=== PATIENT | male | born 1995 | race Caucasian/White ===

== ENCOUNTER 2021-11-06 19:46 | Inpatient (IN) | payer MEDICAID, SELFPAY ==
[2021-11-06 19:47] VITALS: BP 129/100; PULSE 102; RESP 17; TEMP 36.2; O2SAT 98; BMI 24.3
--- NOTE | 2021-11-06 20:06 | CM.ED ---
Social Work Telephone call from treatment navigator, Lula. Lula reports to be aware of patient coming to hospital for RAMP. Lula states no need to call Lula on patient admission to [facility]. Parris OLIVEIRA, MORELIAS
--- NOTE | 2021-11-06 20:42 | EDS_ITS ---
HPI History of Present Illness Chief Complaint: Substance Abuse Informant: patient and family Narrative Narrative: Patient seeking detox. He smokes or snorts all of the above on a daily basis: Marijuana, fentanyl, crack cocaine, methamphetamine, Percocet. Last use of most of these was this morning, he did not use fentanyl today but he did use Percocet. He vomited just prior to arrival here but he denies any other withdrawal symptoms right now. 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 He denies any abscesses or acute pain right now in any of these areas. [facility] Medical History Kidney failure MRSA (methicillin resistant Staphylococcus aureus) Neuropathy Overdose Staphylococcal infection of skin Allergy/AdvReac Type Severity Reaction Status Date / Time No Known Allergies Allergy Verified 11/06/21 19:51 Family History (Updated 11/06/21 @ 20:13 by Nany Cooper) Mother Addiction Cancer Father Alcohol abuse Social History Smoking Status: Current every day smoker tobacco type: cigarettes ROS ROS ED Constitutional Constitutional ED: Denies chills or fever(s) Eyes Eyes: Denies change in vision or diplopia ENT ENT ED: Denies rhinorrhea or sore throat Cardiovascular Cardiovascular: Denies chest pain or palpitations Respiratory/Chest Respiratory/Chest: Denies cough or dyspnea Gastrointestinal Gastrointestinal: Denies abdominal pain, diarrhea, nausea or vomiting Genitourinary Genitourinary ED: Denies dysuria or hematuria Musculoskeletal Musculoskeletal: Denies back pain or neck pain Integumentary Reports sores; Denies abscess or rash Neurologic Neurologic: Denies headache(s), paresthesias or weakness Psychiatric Psychiatric: Denies anxiety or suicidal thoughts EXAM Physical Exam Const Vital Signs: 11/06/21 19:47 11/06/21 22:30 Temperature 97.1 F L Temperature Source Temporal Pulse Rate 102 H 81 Respiratory Rate 17 16 Blood Pressure 129/100 H 146/80 H Blood Pressure Mean 109 102 Pulse Ox 98 Oxygen Delivery Method Room Air Positive well nourished and well developed General Appearance ED: well developed and NAD HEENT Reports moist mucous membranes normocephalic and atraumatic Eyes PERRL and EOMs intact bilaterally Neck full ROM and supple Resp normal respiratory effort and clear to auscultation bilaterally Cardio regular rate, regular rhythm and no murmurs GI non-tender and non-distended Auscultation: normoactive bowel sounds Palpation: soft Back/Spine no CVA tenderness General Back: other FROM Extremity normal to inspection General Extremety ED: Negative for edema, pulses abnormal or tenderness General Extremity: Negative for edema or pulses abnormal Neuro oriented x3, CN's II-XII intact bilaterally and no sensory deficits noted Sensorium / Orientation: awake and alert Motor Exam: strength 5/5 throughout Psych mental status grossly normal, thought process normal, cooperative, affect normal, speech normal, activity/motor behavior normal, denies hallucinations, denies homicidal ideation and denies suicidal ideation Skin Skin Narrative: No rashes but the patient has multiple scabbed over nontender wounds on his face and forearms without any abscess formation or significant tenderness/lymphangitis. MDM MDM MDM Narrative Medical decision making narrative: Labs obtained, urine drug screen results noted and otherwise unremarkable. Patient is stable at this time, discussed with hospitalist for admission for detox. Lab Data Attestation: I reviewed the patient's lab results. Labs: Laboratory Results - last 24 hr 11/06/21 11/06/21 11/06/21 20:45 20:45 20:45 WBC 11.5 H RBC 5.24 Hgb 15.8 Hct 46.2 MCV 88.2 MCH 30.2 MCHC 34.2 RDW Std Deviation 39.0 RDW Coeff of Kali 11.9 Plt Count 282 MPV 9.7 Immature Gran % (Auto) 0.300 Neut % (Auto) 66.1 Lymph % (Auto) 22.2 [place] % (Auto) 9.5 Eos % (Auto) 1.6 Baso % (Auto) 0.3 Absolute Neuts (auto) 7.6 Absolute Lymphs (auto) 2.55 Nucleated RBC % 0 Sodium 140 Potassium 3.6 Chloride 106 Carbon Dioxide 25.0 Anion Gap 9 BUN 17 Creatinine 0.92 Estim Creat Clear Calc 125.63 Est GFR (MDRD) Af Amer 127 Est GFR (MDRD) Non-Af 105 BUN/Creatinine Ratio 18.5 Glucose 94 Calcium 9.5 Total Bilirubin 0.80 AST 16 ALT 17 Alkaline Phosphatase 95 Total Protein 8.1 Albumin 4.2 Globulin 3.9 Albumin/Globulin Ratio 1.1 Urine Opiates Screen Urine Methadone Screen Ur Barbiturates Screen Ur Phencyclidine Scrn Ur Amphetamines Screen MDMA (Ecstasy) Screen U Benzodiazepines Scrn Urine Cocaine Screen U Cannabinoids Screen Ur Drug Screen Comment Ethyl Alcohol 11.0 11/06/21 21:46 WBC RBC Hgb Hct MCV MCH MCHC RDW Std Deviation RDW Coeff of Kali Plt Count MPV Immature Gran % (Auto) Neut % (Auto) Lymph % (Auto) [place] % (Auto) Eos % (Auto) Baso % (Auto) Absolute Neuts (auto) Absolute Lymphs (auto) Nucleated RBC % Sodium Potassium Chloride Carbon Dioxide Anion Gap BUN Creatinine Estim Creat Clear Calc Est GFR (MDRD) Af Amer Est GFR (MDRD) Non-Af BUN/Creatinine Ratio Glucose Calcium Total Bilirubin AST ALT Alkaline Phosphatase Total Protein Albumin Globulin Albumin/Globulin Ratio Urine Opiates Screen NEGATIVE Urine Methadone Screen NEGATIVE Ur Barbiturates Screen NEGATIVE Ur Phencyclidine Scrn NEGATIVE Ur Amphetamines Screen POSITIVE H MDMA (Ecstasy) Screen POSITIVE H U Benzodiazepines Scrn NEGATIVE Urine Cocaine Screen POSITIVE H U Cannabinoids Screen POSITIVE H Ur Drug Screen Comment Ethyl Alcohol Discharge Plan Dx/Rx/DC Orders Clinical Impression: Opiate dependence, Polysubstance abuse Disposition Disposition: Acute Care Hospital [facility]
[2021-11-06] MEDS: Ondansetron ODT 4 MG Tablet 8 MG PO (20:46)
[2021-11-06 20:58] LABS: Absolute Lymphocyte Count 2.55 X10^3/uL (0.83-4.51); Absolute Neutrophil Count 7.6 X10^3/uL (2.0-7.7); Basophil# 0.04 X10^3/uL; Basophil% 0.3 % (0-1); Eosinophil# 0.18 X10^3/uL; Eosinophils% 1.6 % (0-5); Hematocrit 46.2 % (40-54); Hemoglobin 15.8 g/dL (13.0-16.5); Lymphocyte # 2.55 X10^3/ul (0.83-4.51); Lymphocyte % 22.2 % (19-41); Mean Corp Hgb Conc 34.2 g/dL (32-36); Mean Corpuscular Hgb 30.2 pg (27.0-32.0); Mean Corpuscular Volume 88.2 fL (80-94); Mean Platelet Vol. 9.7 fl (6.2-12.0); Monocyte# 1.09 X10^3/uL; Monocyte% 9.5 % (0-10); NRBC Flagged by Analyzer 0 % (0-5); Neutrophil # 7.59 X10^3/uL (2.7-7.7); Neutrophil % 66.1 % (47-70); Platelet Count 282 K/mm3 (150-450); RBC Distribution Width CV 11.9 % (11.6-14.6); Red Blood Count 5.24 M/mm3 (4.6-6.2); White Blood Count 11.5 K/mm3 (4.4-11.0)
[2021-11-06 21:12] LABS: ALB/GLOB Ratio 1.1 RATIO (0.9-2.4); AST(SGOT) 16 U/L (15-37); Alanine Aminotransfer ALT/SGPT 17 U/L (16-61); Albumin, Serum 4.2 g/dL (3.2-5.0); Alkaline Phosphatase 95 U/L (45-117); Anion Gap 9 (5-15); BUN 17 mg/dL (7-18); BUN/Creat Ratio 18.5 RATIO (10-20); Calcium,Total 9.5 mg/dL (8.5-10.1); Chloride 106 mmol/L (98-107); Creatinine, Serum 0.92 mg/dL (0.70-1.30); EST Glomerular Filtration Rate 105 mL/min (>60); Est Glom Filt Rate - Afr Amer 127 mL/min (>60); Estimated Creatinine Clearance 125.63 ml/min; Globulin 3.9 g/dL (2.2-4.2); Glucose 94 mg/dL (74-106); Potassium 3.6 mmol/L (3.5-5.1); Protein, Total 8.1 g/dL (6.4-8.2); Sodium Level 140 mmol/L (136-145)
[2021-11-06 22:30] VITALS: BP 146/80; PULSE 81; RESP 16
[2021-11-06 22:49] LABS: Amphetamine Urine VISTA POSITIVE (<1000 ng/mL); Barbiturate Urine VISTA NEGATIVE (< 200 ng/mL); Benzodiazepine Urine VISTA NEGATIVE (< 200 ng/mL); Cocaine Urine VISTA POSITIVE (< 300 ng/mL); Ecstacy Urine VISTA POSITIVE (< 500 ng/mL); Methadone Urine VISTA NEGATIVE (< 300 ng/mL); PCP Urine VISTA NEGATIVE (< 25 ng/mL); THC Urine VISTA POSITIVE (< 50 ng/mL); Vista UDS pH Range 5
--- NOTE | 2021-11-06 23:13 | HP.PCM.HOS_ITS ---
HPI - General HPI Narrative EFFIE WHITAKER, is a 26 M with a significant history of tobacco abuse and multisubstance drug abuse who presents for help with detoxification. Patient's snorts or drugs. He denies taking any drug rally or by IV. He is not methamphetamine; fentanyl; crack cocaine; and Percocet. He started smoking meth at the age of 20. At the age of 18 he was using heroin but now he uses fentanyl. He still using fentanyl at the age of 22. At the age of [age] he began using crack cocaine. An early age of 13 to 14 years he began using Percocets. His last time of use was several hours before presentation. Reportedly over night 11/05/2021 to 11/06/2021 patient was in a green party and and he took a cocktail of drugs without knowing exactly what the drugs contained. But he is sure that he took meth at that time. He denies any withdrawal symptoms at the time of presentation. Indeed he report that he feels high. Of note patient had overdose in the past and required dialysis. Patient reported that his father was an alcoholic and his mother also from drug and alcohol intoxication. [facility] Medical History Kidney failure MRSA (methicillin resistant Staphylococcus aureus) Neuropathy Overdose Staphylococcal infection of skin Allergy/AdvReac Type Severity Reaction Status Date / Time No Known Allergies Allergy Verified 11/06/21 19:51 Family History Mother Addiction Cancer Father Alcohol abuse Social History Smoking Status: Current every day smoker tobacco type: cigarettes ROS ROS Narrative Constitutional: Denies fever, chills, fatigue, anorexia and change in weight Eyes: Denies blurry vision, change in eye color, change in vision, discharge from eye(s), double vision, erythema, eye pain, loss of vision or other HEENT: Denies abnormal hearing, dysphagia, ear pain, epistaxis, headache(s), hearing loss, nasal congestion, nasal discharge, post nasal drip, sinus pressure, sore throat or other Cardiovascular: Denies chest pain or palpitations. Denies dyspnea on exertion, orthopnea and paroxysmal nocturnal dyspnea Respiratory/Chest: Denies cough, excessive phlegm production, shortness of breath with exertion and wheezing Gastrointestinal: Denies abdominal pain, coffee ground emesis, constipation, diarrhea, dyspepsia, hematemesis, hematochezia, loose stools, melena, nausea, v omiting or other Genitourinary: Denies burning urination, difficulty urinating, dysuria, hematuria, nocturia, urinary frequency, urinary hesitancy, urinary incontinence, urinary urgency or other Musculoskeletal: Denies arthralgias, back pain, joint pain, joint stiffness, joint swelling, myalgias, neck pain or other Neurologic: Reports feeling high. Denies abnormal gait, abnormal speech, confus ion, disequilibrium, dizziness, focal weakness, numbness, paresthesias, seizure- like activity, seizures, syncope, tingling, tremor(s) or other Psychiatric: Picks at the skin order time and when high if he picks at them more. Denies homicidal ideation, suicidal ideation or other Endocrinology: Denies change in body appearance, cold intolerance, excessive sweating, heat intolerance, polydipsia, polyuria or other Hematologic/Lymphatic: Denies anemia, easy bleeding, easy bruising, lymphadenopathy or other Integumentary: Excoriations and abrasions on his skin that he attributes to picking. Allergic/Immunologic: Denies rhinitis, hives, eczema, or other Vital Signs Vital Signs Vital Signs: 11/06/21 19:47 11/06/21 22:30 Temperature 97.1 F L Temperature Source Temporal Pulse Rate 102 H 81 Respiratory Rate 17 16 Blood Pressure 129/100 H 146/80 H Blood Pressure Mean 109 102 Pulse Ox 98 Oxygen Delivery Method Room Air Weight Weight: 77.111 kg Body Mass Index (BMI) 24.3 Physical Exam Narrative Physical exam: General: Well-nourished, well-developed. Head: Normocephalic, atraumatic, no tenderness Eyes: Vision is grossly intact. EOMI ENT, no trauma, moist mucous membranes, no rhinorrhea Neck: Nontender, full range of motion, no spinal tenderness, deformities, step- off CVS: Regular rate and rhythm. S1-S2 present. No murmur, gallop or rub. Respiratory : clear to auscultation bilaterally, chest wall nontender, no wheezing Abdomen: Soft, nontender, nondistended, normal bowel sounds, no masses : Deferred Back: Nontender, no CVA tenderness, no midline spinal tenderness, deformities, step-offs Extremities: Nontender full range of motion, no trauma Skin: Excoriations and abrasions on body. Normal color. Neuro: Appears high. Cranial nerves II through XII grossly intact. Psychiatry: Normal mood. Normal affect. Not depressed. Not anxious. Results Lab / Micro Data Result Diagrams: 11/06/21 20:45 11/06/21 20:45 Labs: Laboratory Results - last 24 hr 11/06/21 20:45: WBC 11.5 H, RBC 5.24, Hgb 15.8, Hct 46.2, MCV 88.2, MCH 30.2, MCHC 34.2, RDW Std Deviation 39.0, RDW Coeff of Kali 11.9, Plt Count 282, MPV 9.7, Immature Gran % (Auto) 0.300, Neut % (Auto) 66.1, Lymph % (Auto) 22.2, [place] % (Auto) 9.5, Eos % (Auto) 1.6, Baso % (Auto) 0.3, Absolute Neuts (auto) 7.6, Absolute Lymphs (auto) 2.55, Nucleated RBC % 0 11/06/21 20:45: Sodium 140, Potassium 3.6, Chloride 106, Carbon Dioxide 25.0, Anion Gap 9, BUN 17, Creatinine 0.92, Estim Creat Clear Calc 125.63, Est GFR (MDRD) Af Amer 127, Est GFR (MDRD) Non-Af 105, BUN/Creatinine Ratio 18.5, Glucose 94, Calcium 9.5, Total Bilirubin 0.80, AST 16, ALT 17, Alkaline Phosphatase 95, Total Protein 8.1, Albumin 4.2, Globulin 3.9, Albumin/Globulin Ratio 1.1 11/06/21 20:45: Ethyl Alcohol 11.0 11/06/21 21:46: Urine Opiates Screen NEGATIVE, Urine Methadone Screen NEGATIVE, Ur Barbiturates Screen NEGATIVE, Ur Phencyclidine Scrn NEGATIVE, Ur Amphetamines Screen POSITIVE H, MDMA (Ecstasy) Screen POSITIVE H, U Benzodiazepines Scrn NEGATIVE, Urine Cocaine Screen POSITIVE H, U Cannabinoids Screen POSITIVE H, Ur Drug Screen Comment Assessment & Plan Assessment/Plan (1) Opiate dependence: QUALIFIERS: Substance use status: with intoxication Complication of substance-induced condition: uncomplicated Qualified Code(s): F11.220 - Opioid dependence with intoxication, uncomplicated (2) Polysubstance abuse: PLAN: Opioid dependence and intoxication Review of labs showed mildly elevated white count of 11.5. Urine toxicology was positive for amphetamines; MDMA; cocaine; and cannabinoids. Ethanol level was low at 11 mg/dL. Opioids level negative. Monitor COWS and CINA score Patient will be started on Subutex and other adjunctive medications as soon as COWS and CINA score. Gabapentin as needed; dicyclomine as needed; Vistaril as needed; methocarbamol as needed; clonidine as needed; Imodium as needed; trazodone as needed and Zofran as needed. Tobacco abuse Counseled Declined nicotine patch and nicotine gum at this time. DVT prophylaxis Low risk Encourage to ambulate CODE STATUS: Patient reported being high. Per physical examination patient is high; although he could hold a conversation. Patient stated that he wanted to be a DO NOT RESUSCITATE. Discussed with patient that since he feels high will be made a full code at this time. Patient sisters who is at the bedside agrees. CODE STATUS can be revisited after his acute stage. Charges/Coding Visit Charges Inpatient E&M: 75201 Init Hosp L2
[2021-11-06 23:45] VITALS: BP 168/80; PULSE 80; RESP 16; TEMP 37.1
[2021-11-06 23:56] VITALS: BMI 22.9
[2021-11-07] VITALS (8 sets, daily range): BP systolic 103–152; BP diastolic 56–97; PULSE 57–88; RESP 16–18; TEMP 36.4–37; O2SAT 97–100
[2021-11-07] MEDS: cloNIDine HCl 0.1 MG Tablet PO (00:36)
[2021-11-07] MEDS: Methocarbamol 750 MG Tablet 1500 MG PO (00:36)
[2021-11-07] MEDS: Buprenorphine HCl 2 MG TAB.SUBL SL ×3 (02:37→17:50)
[2021-11-07] MEDS: hydrOXYzine PAM 25 MG Capsule 50 MG PO ×2 (06:25→17:50)
[2021-11-07] MEDS: Gabapentin 300 MG Capsule PO (06:25)
--- NOTE | 2021-11-07 08:34 | PN.HOSP_ITS ---
Subjective Subjective Follow-up on acute opioid withdrawal: Patient was seen and examined. He complains of feeling hot and cold. He states that he picks on his face when he is high on meth. No acute events overnight. Objective Data Objective Data Vital Signs: Vital Signs Temp Pulse Resp BP Pulse Ox 98.0 F 66 18 121/72 H 98 11/07/21 08:27 11/07/21 08:27 11/07/21 08:27 11/07/21 08:27 11/07/21 08:27 Oxygen Delivery Method Room Air Weight: 72.7 kg Body Mass Index (BMI) 22.9 Lab / Micro Data Result Diagrams: 11/06/21 20:45 11/06/21 20:45 Labs: Laboratory Results - last 24 hr 11/06/21 20:45: WBC 11.5 H, RBC 5.24, Hgb 15.8, Hct 46.2, MCV 88.2, MCH 30.2, MCHC 34.2, RDW Std Deviation 39.0, RDW Coeff of Kali 11.9, Plt Count 282, MPV 9.7, Immature Gran % (Auto) 0.300, Neut % (Auto) 66.1, Lymph % (Auto) 22.2, [place] % (Auto) 9.5, Eos % (Auto) 1.6, Baso % (Auto) 0.3, Absolute Neuts (auto) 7.6, Absolute Lymphs (auto) 2.55, Nucleated RBC % 0 11/06/21 20:45: Sodium 140, Potassium 3.6, Chloride 106, Carbon Dioxide 25.0, Anion Gap 9, BUN 17, Creatinine 0.92, Estim Creat Clear Calc 125.63, Est GFR (MDRD) Af Amer 127, Est GFR (MDRD) Non-Af 105, BUN/Creatinine Ratio 18.5, G lucose 94, Calcium 9.5, Total Bilirubin 0.80, AST 16, ALT 17, Alkaline Phosphatase 95, Total Protein 8.1, Albumin 4.2, Globulin 3.9, Albumin/Globulin Ratio 1.1 11/06/21 20:45: Ethyl Alcohol 11.0 11/06/21 21:46: Urine Opiates Screen NEGATIVE, Urine Methadone Screen NEGATIVE, Ur Barbiturates Screen NEGATIVE, Ur Phencyclidine Scrn NEGATIVE, Ur Amphetamines Screen POSITIVE H, MDMA (Ecstasy) Screen POSITIVE H, U Benzodiazepines Scrn NEGATIVE, Urine Cocaine Screen POSITIVE H, U Cannabinoids Screen POSITIVE H, Ur Drug Screen Comment Physical Exam Narrative General: Alert, oriented x3, cooperative, no apparent distress HEENT: Atraumatic, erythematous lesions on the lower half of the face, with open areas and crusting from skin picking Oral: Moist Mucosa Neck: Supple Lungs: Normal air movement, Diminished Cardiovascular: HS I +II, regular, no murmurs Abdomen: Bowel Sounds Present, Soft, Non Tender, Non-Distended, No Hepato- splenomegaly Extremities: No edema Assessment & Plan Assessment/Plan (1) Opiate dependence: QUALIFIERS: Substance use status: with intoxication Complication of substance-induced condition: uncomplicated Qualified Code(s): F11.220 - Opioid dependence with intoxication, uncomplicated (2) Polysubstance abuse: PLAN: 1. Acute opioid withdrawal, CINA 6, Continue on Subutex withdrawal, continue to monitor 2. Nicotine dependence, on replacement 3. Polysubstance abuse, urine tox shows amphetamines, ecstasy, cocaine, cannabinoids 4. DVT PPx- low risk, early ambulation Charges/Coding Visit Charges Inpatient E&M: 01122 Subs Hosp L2
--- NOTE | 2021-11-07 13:42 | ADDICTION ---
This sign writer hand met with PT to conduct ASAM, MSE, AUDIT DUDIT assessments and to plan for d/c. PT A+Ox4 and participated actively. All assessments completed and placed in PT's chart. PT plans to f/u with [facility] for residential treatment services. [facility] will provide transportation post d/c from [facility]. They will pick him up tomorrow around noon.
[2021-11-07] MEDS: Mupirocin Ointment 22gm Tube 1 APPLIC TOPICAL ×2 (14:09→20:59)
--- NOTE | 2021-11-07 14:25 | NURSING ---
cell phone obtained from patient by Jose C chopraator locked in tub in room
[2021-11-08] MEDS: Buprenorphine HCl 2 MG TAB.SUBL SL ×2 (02:25→10:02)
[2021-11-08] MEDS: Mupirocin Ointment 22gm Tube 1 APPLIC TOPICAL (06:18)
[2021-11-08 08:41] VITALS: BP 110/64; PULSE 57; RESP 16; TEMP 36.6; O2SAT 98
[2021-11-08 09:31] VITALS: O2SAT 97
--- NOTE | 2021-11-08 10:50 | NURSING ---
pt left ama, signed ama papers
--- NOTE | 2021-11-08 10:53 | ADDICTION ---
Pt has decided to decline residential treatment and leave prior to D/C.
--- NOTE | 2021-11-08 11:25 | PN.HOSP_ITS ---
Subjective Subjective Follow-up on acute opioid withdrawal: Patient was seen and examined. No acute events overnight. Patient was seen by the sanitation worker cleaning equipment and recommended for discharge to residential treatment. Patient however refuses this. It is unclear if patient wants to sign with 180 or not. Objective Data Objective Data Vital Signs: Vital Signs Temp Pulse Resp BP Pulse Ox 98 F 57 L 16 110/64 97 11/08/21 08:41 11/08/21 08:41 11/08/21 08:41 11/08/21 08:41 11/08/21 09:31 Oxygen Delivery Method Room Air Weight: 72.7 kg Body Mass Index (BMI) 22.9 Intake & Output: Intake and Output for Last 24 Hours 11/06/21 11/07/21 11/08/21 23:59 23:59 23:59 Intake Total 720 / 940 440 / 440 Balance 720 / 940 440 / 440 Lab / Micro Data Result Diagrams: 11/06/21 20:45 11/06/21 20:45 Physical Exam Narrative General: Alert, oriented x3, cooperative, no apparent distress HEENT: Atraumatic, erythematous lesions on the lower half of the face, with open areas and crusting from skin picking Oral: Moist Mucosa Neck: Supple Lungs: Normal air movement, Diminished Cardiovascular: HS I +II, regular, no murmurs Abdomen: Bowel Sounds Present, Soft, Non Tender, Non-Distended, No Hepato- splenomegaly Extremities: No edema Assessment & Plan Assessment/Plan (1) Opiate dependence: QUALIFIERS: Substance use status: with intoxication Complication of substance-induced condition: uncomplicated Qualified Code(s): F11.220 - Opioid dependence with intoxication, uncomplicated (2) Polysubstance abuse: PLAN: 1. Acute opioid withdrawal, improving Continue on Subutex withdrawal, continue to monitor 2. Nicotine dependence, on replacement 3. Polysubstance abuse, urine tox shows amphetamines, ecstasy, cocaine, cannabinoids Advised to quit 4. DVT PPx- low risk, early ambulation Charges/Coding Visit Charges Inpatient E&M: 65500 Subs Hosp L2
--- NOTE | 2021-11-08 11:57 | CHAPLAIN ---
Type of Pastoral Visit _x__ Initial Visit ___ Follow-up Visit ___ On-call Visit ___ General Patient Visit ___ Spiritual Assessment ___ Family Conference ___ Bereavement ___ Rapid Response ___ Code Blue ___ Other (describe below) Pastoral Care Referral From _x__ Patient ___ Family ___ Nurse ___ Physician ___ Metal Bumper ___ Vocational Horticulture Instructor ___ Other (describe below) Sacrament/Intervention _x__ Active listening ___ Anointing ___ Tenriism ___ Bereavement ___ Communion ___ exploration ___ _x__ Life review _x__ Prayer ___ Reconciliation ___ Sacrament of Sick _x__ Supportive presence ___ Wedding ___ Other (describe below) Pastoral Comments found patient in the room packing up his possessions with a plan to leave AMA; pt states that he is leaving even if he means that I will be ; encouraged patient to talk about this and he states I always make emotional decisions and that they are bad; encouraged patient to reconsider this decision and remain at hospital for completion of detox; pt is trying to make phone calls to get someone to pick him up; pt is not successful at this time to find a ride; lunch tray came to him; encouraged patient to eat lunch and think over his decision and that he could still stay in hospital for another night; spoke about hope and having a future; pt states that he has very little support and that his mother is ; asked pt if he would let this certified prosthetist/orthotist pray for him and pt said yes; prayer given; told biological chemist that patient may reconsider although it is doubtful; returned to room and patient was seated and eating lunch
== END 2021-11-08 13:50 | disposition left against medical advice (07) | DRG 770 ==
LOC: ED 20:49 → MS3 23:23
PROVIDERS: Admitting Provider Hospitalist; Emergency Provider Emergency Medicine; Visit Provider Internal Medicine
DX: F11.220 Opioid dependence with intoxication, uncomplicated (principal); F14.90 Cocaine use, unspecified, uncomplicated; F15.10 Other stimulant abuse, uncomplicated; F17.210 Nicotine dependence, cigarettes, uncomplicated; Z66 Do not resuscitate; Z86.14 Personal history of Methicillin resistant Staphylococcus aureus infection
CPT/HCPCS: 36415; 80053; 80307; 82077; 85025; 97802; 99283; 99406